=== PATIENT | female | born 1960 | race Caucasian/White ===

== ENCOUNTER 2016-11-06 21:22 | Emergency (ER) | payer MEDICARE, MEDICAID ==
--- NOTE | 2016-11-07 19:52 | ER ---
ADMIT: 11/06/2016 RM/LOC: ER [facility] MR#: [id number] [facility] [address] [place], [place] [id number] YANNICK SALAS [address] [place] [address] Emergency Room Report SEX: F AGE: 56 : 1960 DATE: 11/06/2016 HISTORY OF PRESENT ILLNESS: The patient is a 56-year-old female with multiple comorbidities; fibromyalgia, chronic back pain, endometriosis, and status post back surgery, came to the ER with chief complaint of left lower quadrant pain for half an hour. The patient states she had previous left lower quadrant pain and abdominal pain and was recently diagnosed with UTI, and is on treatment with Bactrim. The patient states she has nausea without vomiting. The patient denies any diarrhea and states last bowel movement was tonight and was normal. PHYSICAL EXAMINATION: GENERAL: The patient is in moderate distress. VITAL SIGNS: Stable. The patient is afebrile. HEAD and NECK: Normal. CHEST: Clear bilaterally. HEART: Normal S1, S2, without any gallops or murmurs. ABDOMEN: Mild left lower quadrant tenderness. No guarding and no rebound tenderness and bowel sounds are normal. PELVIC: Negative for cervical motion tenderness, but on the left side has very mild adnexal tenderness. The rest of the physical exam is noncontributory. EMERGENCY ROOM COURSE: WBC was 7.8, with hemoglobin of 13. UA had 3 wbc's and 2 rbc's. Pelvic ultrasound was negative for any free fluid, and CT of the abdomen was negative for any abnormalities. Vaginal history was negative for clue cell, Chlamydia, and Trichomonas. The patient has a history of endometriosis, but at the moment, there is no free fluid, active bleeding in the abdomen. The patient's pain at the moment is mild to moderate. The patient is already on Fentanyl patch. The patient refused to have any pain killers in the ER and also refused for any painkiller prescription for home and states she has some pain meds at home. The patient is stable and prefers to follow up with the primary doctor. The patient was reassured, abdomen was examined and the patient had no rebound or guarding, the tenderness in left lower quadrant was mostly resolved and the patient states she still has very [id number] pain, which is deep inside the left lower quadrant pain. The patient was advised to follow up with the primary doctor and a Gynecology clinic for further followups and treatments. The patient previously has been followed up by Dr. Rodas. The patient acknowledged she understood the plan and agreed with it was discharged to home. Jb Bearden MD/ ej JOB #: [id number] CC: Jb Bearden MD, Attending Physician Concepcion Rodas MD, Family Physician
[2017-01-23] MEDS ORDERED: ABILIFY10 MG PO (14:36)
[2017-01-23] MEDS ORDERED: LASIX DPS20 MG PO (14:37)
[2017-01-23] MEDS ORDERED: DESYREL DPS100 MG PO (14:37)
[2017-01-23] MEDS ORDERED: ZANAFLEX4 MG PO (14:37)
[2017-01-23] MEDS ORDERED: KLONOPIN DPS1 MG PO (14:37)
[2017-01-23] MEDS ORDERED: CYMBALTA60 MG PO (14:37)
[2017-01-23] MEDS ORDERED: MAALOX DPS30 ML PO (14:38)
[2017-01-23] MEDS ORDERED: [UNRECOGNIZED DRUG - OTHER] IV (14:38)
[2017-01-23] MEDS ORDERED: TYLENOL DPS325 MG PO (14:38)
[2017-01-23] MEDS ORDERED: NORMAL SALINE FL5 ML IV (14:38)
[2017-01-23] MEDS ORDERED: COLACE-DPS100 MG PO (14:38)
[2017-01-23] MEDS ORDERED: BENADRYL-DPS25 MG PO (14:38)
[2017-01-23] MEDS ORDERED: DILAUDID P6 MG/30 ML IV (14:39)
[2017-01-23] MEDS ORDERED: HYDROMORPHONE IV (14:39)
[2017-01-23] MEDS ORDERED: NALOXONE H0.4 MG/11 IV (14:40)
[2017-01-23] MEDS ORDERED: METOCLOPRA10 MG/2 ML IV (14:41)
[2017-01-23] MEDS ORDERED: ZOFRAN DPS4 MG/2 ML IV (14:42)
== END 2016-11-07 02:10 | disposition home or self-care (01) ==
LOC: ER 21:22
DX: R10.32 Left lower quadrant pain (principal); F17.210 Nicotine dependence, cigarettes, uncomplicated; Z90.49 Acquired absence of other specified parts of digestive tract; Z88.1 Allergy status to other antibiotic agents; Z88.6 Allergy status to analgesic agent; Z79.899 Other long term (current) drug therapy